=== PATIENT | female | born 1965 | race Caucasian/White ===

== ENCOUNTER → 2024-02-24 | Outpatient (CLI) | payer SELFPAY, OTHER ==
--- NOTE | 2024-02-24 09:58 | CT_ITS ---
STUDY: CT CHEST, ABDOMEN T PELVIS WITH CONTRAST REASON FOR EXAM: Female, 58 years old. LYMPHOMA RADIATION DOSAGE (If Supplied By Facility): CTDIvol = ( 17.66 ) mGy, DLP = ( 1535.95 ) mGycm TECHNIQUE: Transaxial imaging was performed following intravenous administration of IV 100mL Isovue-370. Individualized dose optimization techniques were used for this CT. COMPARISON: 11/26/2023 FINDINGS: CHEST Right subclavian chest port. The lungs are normal. There is no demonstrated pleural abnormality. Normal heart and pericardium. Normal mediastinum. Normal hilar regions. Normal unenhanced pulmonary arteries. Normal aorta arch and descending thoracic aorta. Mild dextroscoliosis thoracic spine. There is no demonstrated abnormality of the visualized upper abdomen. ABDOMEN The visualized lung bases are unremarkable. The visualized portions of the heart are within normal limits. Interval development of multiple lesions of decreased attenuation within the liver with the largest measuring 2 cm in the medial segment left lobe adjacent to the falciform ligament. There are surgical clips in the gallbladder fossa consistent with a prior cholecystectomy. Normal spleen. Normal pancreas. Normal bilateral adrenal glands. There is moderate cortical atrophy of the right kidney, consistent with chronic medical renal disease. Mild hydronephrosis may represent chronic obstruction. Normal left kidney. Normal visualized stomach. Normal small intestine. There are multiple colonic diverticula consistent with diverticulosis. There is non-visualization of the appendix. Normal abdominal aorta. Normal inferior vena cava. Normal retroperitoneum. There is a small umbilical hernia containing fat. There are diffuse degenerative changes of the visualized lumbar spine. PELVIS Normal urinary bladder. Normal visualized small intestine. Normal visualized colon. There is no pelvic fluid. No change in right inguinal lymphadenopathy with 2 lymph nodes measuring 2.2 x 2.6 cm and 3.0 x 4.5 cm. Normal visualized pelvic arteries. Normal abdominal wall. Normal osseous structures. CT/CT Chest, Abd, Pel w/Contrast IMPRESSION: 1. No change in right inguinal lymphadenopathy consistent with known lymphoma but no other lymphadenopathy. 2. Multiple new hepatic lesions may represent metastatic disease or lymphoma. Electronically Signed: Leo Gilbert MD at 17:45 EDT ,
== END | disposition home or self-care (01) ==
DX: C85.90 Non-Hodgkin lymphoma, unspecified, unspecified site (principal)
CPT/HCPCS: 71260; 74177; Q9967

== ENCOUNTER → 2024-04-27 | Outpatient (CLI) | payer SELFPAY, OTHER ==
--- NOTE | 2024-04-27 10:00 | PET_ITS ---
EXAMINATION: FDG-PET/CT ? INDICATIONS: 58-year-old female with a history of lymphoma, presenting for restaging examination. ? COMPARISON EXAMINATION: CT of the chest, abdomen and pelvis report dated 02/24/2024. ? INDEX LESION SIZE SUV LUGANO INTERPRETATION Right inguinal region 45.5 mm, largest 5.2 max 5 Fulfills quantitative criteria for viable neoplasm ? TECHNIQUE: Following the intravenous administration of 13.6 mCi of F-18 deoxyglucose via the right hand, multiplanar image acquisitions of the head, neck, chest, abdomen and pelvis to the level of the midthigh, obtained at one-hour post radiopharmaceutical administration contemporaneously interpreted with the current CT of the chest, abdomen and pelvis dated 04/27/[address] of the chest, abdomen and pelvis report dated 02/24/2024 via coregistration reveal: ? SERUM GLUCOSE LEVEL:? 113 mg/dL? HEIGHT:?? 65 inches WEIGHT:?? 196 pounds ? FINDINGS: ? HEAD/NECK:? There is no evidence of abnormal increased glucose metabolism in the pharyngeal mucosal space, parapharyngeal space, oropharynx, bilateral-lateral and anterior neck, hypopharynx and distribution of the larynx. ? The visualized portion of the cerebral cortical-subcortical structures demonstrate symmetric and preserved glucose metabolism. ? CHEST:? There is no quantitative scintigraphic evidence of abnormal increased glucose metabolism within the context of the bilateral hemithorax pulmonary parenchyma, right and left hemithorax at the pleural interface, mediastinal structures, and left-right thoracic perihilum.? The left ventricular myocardium is demonstrated, consistent with the [place]. ? CT of the chest demonstrates the following anatomic characteristics: Port-A-Cath placement is defined.?? Atherosclerotic calcification is defined in the thoracic aorta without evidence of dilatation, aneurysm formation.? Coronary arterial calcification is encountered.? Calcifications noted within the mediastinum are ametabolic.? There are no parenchymal densities-nodules defined in the right and left hemithorax with quantitatively significant increased FDG uptake.? Ground glass changes noted in the left lung field are nonglucose avid.? A calcified parenchymal density noted in the right hemithorax pulmonary parenchyma demonstrates no evidence of increased tracer uptake. ? ABDOMEN/PELVIS:? Facilitated uptake is noted in the right inguinal region in two separate nodular presentations generating a calculated standard uptake value of 5.2 max.? The [place] Deauville score is 5.? The maximal axial diameter of the largest metabolic, morphologic abnormality is 45.5 mm.? Normal physiologic distribution of the radiopharmaceutical is identified in the hepatic (3.8) and splenic parenchyma, both renal units, urinary bladder, and visualized intestinal tract. ? CT of the abdomen and pelvis is remarkable for the following: ? The gallbladder is surgically absent.? Left inguinal soft tissue, subcentimeter in presentation, is ametabolic.? Atherosclerotic calcification is defined in the abdominal aorta without evidence of dilatation, aneurysm formation.? Pelvic arterial calcification is observed. The right kidney is hypertrophic relative to the left. ? SKELETAL:? There is no evidence of quantitatively significant enhanced glucose metabolism on meticulous inspection of the appendicular and axial skeletal structures. ? Degenerative changes defined in the thoracic and lumbar spine demonstrate no evidence of increased glucose metabolism. There are no sclerotic, mixed sclerotic-lytic, or primarily lytic changes defined in the axial skeletal structures with evidence of increased FDG uptake. ? PET/PET/CT Tumor Base -Thigh Subs IMPRESSION: 1. ABNORMAL EXAMINATION INDICATIVE OF MALIGNANT-VIABLE NEOPLASM. 2.? Increased tracer uptake noted in the right inguinal region fulfills quantitative criteria for viable neoplasm.? (Cleopatra et al, Journal of Clinical Oncology, 32: 3059, 2014). Electronic Signature Leo James D.O. Accurate Quantification of SUVs and standardized [place] scores specific to lymphoma FDG PET-CT study interpretation for this report are calculated using the exclusive [employer]. ([place] Patent No. [id number] [id number] 983 B2 [phone] [place] patent [phone]). Standardization and correction of the FDG SUV metric via [employer] technology allow for vendor non-specific objective quantitative examination comparison and optimization of the sensitivity and specificity of the FDG PET-CT examination. [email or web address] Electronically Signed: Leo James DO at 22:21 EDT ,
== END | disposition home or self-care (01) ==
DX: C82.39 Follicular lymphoma grade IIIa, extranodal and solid organ sites (principal); C43.71 Malignant melanoma of right lower limb, including hip; E83.52 Hypercalcemia
CPT/HCPCS: 78815; A9552